=== PATIENT | male | born 2000 | race Caucasian/White ===

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

== ENCOUNTER 2021-02-18 06:54 | Day surgery (SDC) | payer OTHER ==
[~2021-02-18] VITALS: Ht 188 cm; Wt 70.4 kg
[2021-02-18] MEDS ORDERED: ZYRTEC 10MG10 MG PO (07:39)
[2021-02-18] MEDS ORDERED: ONE-A-DAY ESSE1 EACH PO (07:39)
[2021-02-18] MEDS ORDERED: EXCEDRIN1 TAB PO (07:39)
[2021-02-18 07:40] VITALS: BP 138/82; PULSE 96; TEMP 99.2
[2021-02-18 09:05] VITALS: BP 96/65; PULSE 81; TEMP 97.4
--- NOTE | 2021-02-18 09:05 | NUR ---
Patient arrives to [facility] via cart, accompanied by [facility] RN Laney Holloway. He is alert and oriented. He ambulates with steady gait to the chair in his room. Monitoring is applied - VSS and WNL on room air. PIV to TKO. He denies pain or nausea. He is offered and receives juice and a muffin. Dr. Paul comes to the bedside and speaks with him.
[2021-02-18 09:15] VITALS: BP 103/75; PULSE 91
--- NOTE | 2021-02-18 09:15 | NUR ---
VSS. He is tolerating PO well. Denies complaints.
[2021-02-18 09:30] VITALS: BP 113/76; PULSE 84
--- NOTE | 2021-02-18 09:30 | NUR ---
Patient has met discharge criteria. Discharge instructions are discussed. He denies any questions and verbalizes understanding. PIV is removed with catheter intact and hemostasis achieved. He is changing to his clothing independently.
--- NOTE | 2021-02-18 09:40 | NUR ---
Patient is escorted to the exit via wheelchair by MARIBEL Shipman. He is discharged to home with ride in private vehicle at 0940.
[2021-02-18 12:22] VITALS: BP 96/65; PULSE 70; TEMP 97.4
== END 2021-02-18 09:40 | disposition home or self-care (01) ==
LOC: SDCO 06:54
DX: K92.1 Melena (principal); R19.7 Diarrhea, unspecified; K64.0 First degree hemorrhoids; K62.89 Other specified diseases of anus and rectum
CPT/HCPCS: J2704; J3010; J7120